=== PATIENT | male | born 1980 | race Caucasian/White ===

== ENCOUNTER → 2019-02-04 | Outpatient (RCR) | payer OTHER, MEDICAID | END | disposition home or self-care (01) | LOC: MKS.ESL.PT | DX: I69.354 Hemiplegia and hemiparesis following cerebral infarction affecting left non-dominant side (principal); I69.393 Ataxia following cerebral infarction; R25.2 Cramp and spasm ==

== ENCOUNTER 2019-02-19 10:30 | Outpatient (RCR) | payer OTHER, MEDICAID | END 2019-04-03 10:19 | disposition home or self-care (01) | LOC: MKS.ESL.PT 10:30 | DX: R25.2 Cramp and spasm (principal); R26.0 Ataxic gait; Z86.73 Personal history of transient ischemic attack (TIA), and cerebral infarction without residual deficits ==

== ENCOUNTER → 2019-07-02 | Outpatient (RCR) | payer OTHER, MEDICAID | LOC: MKS.ESL.PT | DX: I69.354 Hemiplegia and hemiparesis following cerebral infarction affecting left non-dominant side (principal) ==

== ENCOUNTER 2019-07-28 11:00 | Outpatient (RCR) | payer OTHER, MEDICAID | END 2019-08-07 09:37 | disposition home or self-care (01) | LOC: MKS.ESL.PT 11:00 | DX: R25.2 Cramp and spasm (principal); R26.0 Ataxic gait; Z86.73 Personal history of transient ischemic attack (TIA), and cerebral infarction without residual deficits ==

== ENCOUNTER 2020-07-18 11:00 | Outpatient (RCR) | payer OTHER, MEDICAID | END 2020-08-02 | disposition home or self-care (01) | LOC: MKS.ESL.PT | DX: I69.354 Hemiplegia and hemiparesis following cerebral infarction affecting left non-dominant side (principal) ==

== ENCOUNTER 2020-10-19 13:45 | Outpatient (RCR) | payer OTHER, MEDICAID | END 2020-11-07 | disposition home or self-care (01) | LOC: MKS.ESL.PT | DX: R26.81 Unsteadiness on feet (principal); R27.8 Other lack of coordination ==